=== PATIENT | male | born 1965 | race Two or more races ===

== ENCOUNTER 2022-07-12 08:36 | Outpatient (CLI) | payer OTHER | END 2022-07-12 08:39 | disposition home or self-care (01) | LOC: LAB 08:36 | PROVIDERS: ATTEND Orthopaedic Surgery | DX: D68.8 Other specified coagulation defects (principal); E88.9 Metabolic disorder, unspecified; N39.0 Urinary tract infection, site not specified; E11.9 Type 2 diabetes mellitus without complications; A49.02 Methicillin resistant Staphylococcus aureus infection, unspecified site; I10 Essential (primary) hypertension ==

== ENCOUNTER 2022-08-09 11:55 | Day surgery (SDC) | payer OTHER ==
[~2022-08-09 11:55] MED LIST: NORVASC5 MG PO; TRIL PO
== END 2022-08-10 03:20 | disposition home or self-care (01) ==
LOC: CIR.AMB 11:55
PROVIDERS: ATTEND Orthopaedic Surgery
DX: M76.821 Posterior tibial tendinitis, right leg (principal); M76.71 Peroneal tendinitis, right leg; M21.00 Valgus deformity, not elsewhere classified, unspecified site; Z20.822 Contact with and (suspected) exposure to COVID-19; Z88.6 Allergy status to analgesic agent; I10 Essential (primary) hypertension; F17.210 Nicotine dependence, cigarettes, uncomplicated
CPT/HCPCS: 28300; 27676; L8699

== ENCOUNTER 2022-09-16 12:05 | Outpatient (CLI) | payer OTHER | END 2022-09-16 12:13 | disposition home or self-care (01) | LOC: RAD 12:05 | PROVIDERS: ATTEND Orthopaedic Surgery | DX: M79.671 Pain in right foot (principal) ==

== ENCOUNTER → 2023-07-27 | Outpatient (CLI) | payer OTHER | END | disposition home or self-care (01) | LOC: RAD 13:22 | PROVIDERS: ATTEND Orthopaedic Surgery | DX: M79.671 Pain in right foot (principal) ==